=== PATIENT | male | born 1970 | race Caucasian/White ===

== ENCOUNTER 2020-11-07 13:20 | Emergency (ER) | payer MEDICARE ==
[2020-11-07] MEDS ORDERED: ACETAMINOPHEN 325 MG TABLET PO STA (13:50)
[2020-11-07] MEDS ORDERED: SODIUM CHLORIDE 0.9% 1,000 ML IV STA ×3 (13:55→14:37)
[2020-11-07 14:22] LABS: BASOPHILS % (AUTO) 0.1 %; EOSINOPHILS % (AUTO) 0.1 %; HCT - HEMATOCRIT 24.2 % (42.0-52.0); HGB - HEMOGLOBIN 7.8 g/dL (14.0-18.0); LYMPHOCYTES # (AUTO) 0.2 10^3/uL (1.5-3.5); LYMPHOCYTES % (AUTO) 1.3 %; MEAN CORPUSCULAR HGB CONC 32.2 g/dL (32.0-36.0); MEAN CORPUSCULAR VOLUME 83.7 fL (80.0-94.0); MONOCYTES # (AUTO) 0.5 10^3/uL (0.0-1.0); MONOCYTES % (AUTO) 4.1 %; NEUTROPHILS # (AUTO) 12.2 10^3/uL (1.5-6.6); NEUTROPHILS % (AUTO) 93.5 %; PLT - PLATELET COUNT 636 10^3/uL (130-450); RED BLOOD COUNT 2.89 10^6/uL (4.70-6.10); RED CELL DISTRIBUTION WIDTH 13.2 % (12.0-15.0); WHITE BLOOD COUNT 13.1 x10^3/uL (4.8-10.8)
--- NOTE | 2020-11-07 14:32 | XRAY Report ---
PROCEDURE: Chest 1 View X-Ray INDICATIONS: fever, cough, covid + TECHNIQUE: One view of the chest was acquired. COMPARISON: None FINDINGS: Surgical changes and devices: None. Lungs and pleura: No pleural effusions or pneumothorax. There is focal patchy consolidation in the l eft midlung field and focal patchy consolidation in the extreme right lung base. Mediastinum: Mediastinal contours appear normal. Heart size is normal. Bones and chest wall: No suspicious bony lesions. Overlying soft tissues appear unremarkable. IMPRESSION: Focal patchy bilateral pulmonary infiltrates. Reviewed by: Grant Ross MD on 11/07/2020 1:31 PM [facility] Approved by: Grant Ross MD on 11/07/2020 1:31 PM [facility] Station ID: [id number]
[2020-11-07 14:37] LABS: ALBUMIN/GLOBULIN RATIO 0.8 (1.0-2.2); BILIRUBIN,TOTAL 0.8 mg/dL (0.2-1.0); CREATININE 3.3 mg/dL (0.6-1.2); POTASSIUM 5.8 mmol/L (3.5-5.0); TOTAL PROTEIN 6.8 g/dL (6.7-8.2)
--- NOTE | 2020-11-07 14:42 | ED Physician Documentation ---
History of Present Illness - Stated complaint Stated Complaint: C+ SOA - Chief complaint Chief Complaint: Resp - History obtained from History obtained from: Patient - History of Present Illness Timing: Today Pain level max: 0 Pain level now: 0 - Additonal information Additional information: Patient is a 50-year-old male who presents to the emergency department stating he was diagnosed with Covid 2 weeks ago. Since that time has had increasing shortness of breath, increasing heart rates and fevers. He has a history of a renal transplant 17 years ago. Patient is followed at [facility] with Dr. Matos for this. Nothing makes it better or worse. Review of Systems Ten Systems: 10 systems reviewed and negative Constitutional: reports: Fever, Chills Ears: denies: Ear pain Nose: denies: Rhinorrhea / runny nose, Congestion Throat: denies: Sore throat Respiratory: reports: Dyspnea, Cough GI: denies: Vomiting, Diarrhea Skin: denies: Rash Musculoskeletal: denies: Neck pain, Back pain Neurologic: denies: Headache PD PAST MEDICAL HISTORY - Past Medical History Past Medical History: Yes Cardiovascular: Hypertension - Past Surgical History Past Surgical History: Yes Other past surgical history: Renal transplant - Present Medications Home Medications: Ambulatory Orders Medication Instructions Recorded Confirmed Losartan [Cozaar] 50 mg PO BID 11/07/20 11/07/20 Metoprolol Tartrate [Lopressor] 50 mg PO BID 11/07/20 11/07/20 NIFEdipine [Procardia Xl] 30 mg PO DAILY 11/07/20 11/07/20 PredniSONE [PredniSONE INTENSOL] 5 mg PO DAILY 11/07/20 11/07/20 cycloSPORINE, MODIFIED [Gengraf] 4 mg PO BID 11/07/20 11/07/20 mycophenolate mofetiL 500 mg PO BID 11/07/20 11/07/20 [Mycophenolate Mofetil] - Allergies Allergies/Adverse Reactions: Allergies Allergy/AdvReac Type Severity Reaction Status Date / Time No Known Drug Allergies Allergy Verified 11/07/20 13:50 - Living Situation Living Situation: reports: With family Living Arrangement: reports: At home PD ED PE NORMAL - Vitals Vital signs reviewed: Yes - General General: Alert and oriented X 3, No acute distress, Well developed/nourished - HEENT HEENT: PERRL, Moist mucous membranes - Neck Neck: Supple, no meningeal sign - Cardiac Cardiac: Other (Tachycardic) - Respiratory Respiratory: No respiratory distress, Other (Crackles bilaterally) - Abdomen Abdomen: Soft, Non tender, Non distended - Back Back: No CVA TTP, No spinal TTP - Derm Derm: Warm and dry - Extremities Extremities: No edema, No calf tenderness / cord - Neuro Neuro: Alert and oriented X 3 - Psych Psych: Normal mood, Normal affect Results - Vitals Vitals: Vital Signs - 24 hr 11/07/20 11/07/20 11/07/20 13:43 14:20 14:56 Temperature 38.0 C H Heart Rate 132 H 135 H 126 H Respiratory 19 18 22 Rate Blood Pressure 153/102 H 156/98 H 156/98 H O2 Saturation 92 94 91 L 11/07/20 11/07/20 11/07/20 15:00 15:30 16:00 Temperature 37.2 C Heart Rate 118 H 124 H 120 H Respiratory 24 22 20 Rate Blood Pressure 160/99 H 160/98 H 168/100 H O2 Saturation 96 94 95 11/07/20 11/07/20 11/07/20 17:00 17:30 18:00 Temperature Heart Rate 122 H 125 H 137 H Respiratory 23 21 28 H Rate Blood Pressure 157/96 H 168/114 H 175/102 H O2 Saturation 97 96 95 11/07/20 11/07/20 18:30 19:00 Temperature 37.2 C 37.2 C Heart Rate 148 H 140 H Respiratory 21 20 Rate Blood Pressure 171/103 H 170/100 H O2 Saturation 99 100 Oxygen O2 Source Room air - Labs Labs: Laboratory Tests 11/07/20 11/07/20 11/07/20 14:08 14:08 14:08 WBC 13.1 H RBC 2.89 L Hgb 7.8 L Hct 24.2 L MCV 83.7 MCH 27.0 MCHC 32.2 RDW 13.2 Plt Count 636 H MPV 10.0 Neut # (Auto) 12.2 H Lymph # (Auto) 0.2 L [place] # (Auto) 0.5 Eos # (Auto) 0.0 Baso # (Auto) 0.0 Absolute Nucleated RBC 0.00 Nucleated RBC % 0.0 Sodium 129 L Potassium 5.8 H Chloride 101 Carbon Dioxide 13 L Anion Gap 15.0 H BUN 85 H* Creatinine 3.3 H Estimated GFR (MDRD) 20 L Glucose 120 H Lactic Acid 1.2 Calcium 9.0 Total Bilirubin 0.8 AST 19 ALT 12 Alkaline Phosphatase 67 Total Protein 6.8 Albumin 3.0 L Globulin 3.8 Albumin/Globulin Ratio 0.8 L Urine Color Urine Clarity Urine pH Ur Specific [place] Urine Protein Urine Glucose (UA) Urine Ketones Urine Occult Blood Urine Nitrite Urine Bilirubin Urine Urobilinogen Ur Leukocyte Esterase Urine RBC Urine WBC Ur Squamous Epith Cells Urine Bacteria Ur Microscopic Review Urine Culture Comments Nasal Adenovirus (PCR) Nasal B. parapertussis DNA (PCR) Nasal Coronavir 229E PCR Nasal Coronavir HKU1 PCR Nasal Coronavir NL63 PCR Nasal Coronavir OC43 PCR Nasal Enterovir/Rhinovir PCR Nasal Influenza B PCR Nasal Influenza A PCR Nasal Parainfluen 1 PCR Nasal Parainfluen 2 PCR Nasal Parainfluen 3 PCR Nasal Parainfluen 4 PCR Nasal RSV (PCR) Nasal B.pertussis DNA PCR Nasal C.pneumoniae (PCR) Yuriy Human Metapneumo PCR Nasal M.pneumoniae (PCR) Nasal SARS-CoV-2 (PCR) 11/07/20 11/07/20 14:58 16:45 WBC RBC Hgb Hct MCV MCH MCHC RDW Plt Count MPV Neut # (Auto) Lymph # (Auto) [place] # (Auto) Eos # (Auto) Baso # (Auto) Absolute Nucleated RBC Nucleated RBC % Sodium Potassium Chloride Carbon Dioxide Anion Gap BUN Creatinine Estimated GFR (MDRD) Glucose Lactic Acid Calcium Total Bilirubin AST ALT Alkaline Phosphatase Total Protein Albumin Globulin Albumin/Globulin Ratio Urine Color YELLOW Urine Clarity CLEAR Urine pH 5.5 Ur Specific [place] 1.015 Urine Protein 100 H Urine Glucose (UA) NEGATIVE Urine Ketones NEGATIVE Urine Occult Blood TRACE-INTA Urine Nitrite NEGATIVE Urine Bilirubin NEGATIVE Urine Urobilinogen 0.2 (NORMAL) Ur Leukocyte Esterase NEGATIVE Urine RBC 0-5 Urine WBC 0-3 Ur Squamous Epith Cells NONE SEEN Urine Bacteria Few Ur Microscopic Review INDICATED Urine Culture Comments NOT INDICATED Nasal Adenovirus (PCR) NOT DETECTED Nasal B. parapertussis DNA (PCR) NOT DETECTED Nasal Coronavir 229E PCR NOT DETECTED Nasal Coronavir HKU1 PCR NOT DETECTED Nasal Coronavir NL63 PCR NOT DETECTED Nasal Coronavir OC43 PCR NOT DETECTED Nasal Enterovir/Rhinovir PCR NOT DETECTED Nasal Influenza B PCR NOT DETECTED Nasal Influenza A PCR NOT DETECTED Nasal Parainfluen 1 PCR NOT DETECTED Nasal Parainfluen 2 PCR NOT DETECTED Nasal Parainfluen 3 PCR NOT DETECTED Nasal Parainfluen 4 PCR NOT DETECTED Nasal RSV (PCR) NOT DETECTED Nasal B.pertussis DNA PCR NOT DETECTED Nasal C.pneumoniae (PCR) NOT DETECTED Yuriy Human Metapneumo PCR NOT DETECTED Nasal M.pneumoniae (PCR) NOT DETECTED Nasal SARS-CoV-2 (PCR) DETECTED A - Rads (name of study) cxr Radiology: Prelim report reviewed, EMP read contemporaneously, See rad report (Focal patchy bilateral pulmonary infiltrates) PD MEDICAL DECISION MAKING - ED course Complexity details: reviewed results, re-evaluated patient, considered differential, d/w patient, d/w emergency management consultant ED course: Patient is followed by Dr. Ilan Matos at [facility] for renal transplant. Concern given his rising creatinine. We will transfer him to [facility] for further care. Discussed the case with Dr. Matos as well as the hospitalist, Dr. Rothman who graciously accepts in transfer. COBRA forms completed. This document was made in part using voice recognition software. While efforts are made to proofread this document, sound alike and grammatical errors may occur. Departure - Departure Disposition: 02 Transfer Acute Care Hosp Clinical Impression: COVID-19, Renal transplant recipient, SIRS (systemic inflammatory response syndrome) Renal failure Qualifiers: Renal failure chronicity: acute on chronic Acute renal failure type: unspecified Chronic kidney disease stage: unspecified stage Qualified Code(s): N17.9 - Acute kidney failure, unspecified Condition: Stable Discharge Date/Time: 11/07/20 19:19
[2020-11-07 16:03] LABS: CORONAVIRUS 229E-RESP PCR NOT DETECTED; CORONAVIRUS HKU1-RESP PCR NOT DETECTED; CORONAVIRUS NL63-RESP PCR NOT DETECTED; CORONAVIRUS OC43-RESP PCR NOT DETECTED
[2020-11-07 16:05] LABS: HUMAN METAPNEUMOVIRUS NOT DETECTED; INFLUENZA A- RESP PCR PANEL NOT DETECTED; RHINOVIRUS/ENTEROVIRUS NOT DETECTED; SARS-CoV-2 -RESP PCR PANEL DETECTED
[2020-11-07 16:06] LABS: B. PARAPERTUSSIS- RESP PCR PAN NOT DETECTED; B. PERTUSSIS- RESP PCR PANEL NOT DETECTED; C. PNEUMONIAE- RESP PCR PANEL NOT DETECTED; INFLUENZA B - RESP PCR PANEL NOT DETECTED; M. PNEUMONIAE- RESP PCR PANEL NOT DETECTED; PARAINFLUENZA VIRUS 1 NOT DETECTED; PARAINFLUENZA VIRUS 2 NOT DETECTED; PARAINFLUENZA VIRUS 3 NOT DETECTED; PARAINFLUENZA VIRUS 4 NOT DETECTED; RSV- RESP PCR PANEL NOT DETECTED
[2020-11-07 17:00] LABS: BILIRUBIN,URINE NEGATIVE (NEGATIVE); GLUCOSE, URINE (UA) NEGATIVE (NEGATIVE); KETONES,URINE (UA) NEGATIVE (NEGATIVE); LEUKOCYTE ESTERASE, URINE NEGATIVE (NEGATIVE); NITRITE,URINE NEGATIVE (NEGATIVE); OCCULT BLOOD,URINE TRACE-INTA (NEGATIVE); PH,URINE 5.5 PH (5.0-7.5); PROTEIN,URINE 100 mg/dL (NEGATIVE); UROBILINOGEN,URINE 0.2 (NORMAL) E.U./dL (NORMAL)
[2020-11-07 17:01] LABS: CLARITY,URINE CLEAR (CLEAR)
[2020-11-07 17:13] LABS: BACTERIA,URINE Few /HPF (None Seen); RBC,URINE 0-5 /HPF (0-5); SQUAMOUS EPITHELIAL CELL,UR NONE SEEN (<= Few); WBC,URINE 0-3 /HPF (0-3)
[2020-11-07] MEDS ORDERED: ESMOLOL 100 MG/10 ML VIAL IVP STA (18:40)
[2020-11-07 19:13] VITALS: BP 170/100
== END 2020-11-07 19:19 | disposition short-term general hospital (02) ==
LOC: ED 13:20
DX: U07.1 COVID-19 (principal); R65.10 Systemic inflammatory response syndrome (SIRS) of non-infectious origin without acute organ dysfunction; Z94.0 Kidney transplant status
CPT/HCPCS: 36415; 71045; 80053; 81001; 83605; 85025; 87040; 87631; 96361; 96374; 99284; 99285; A9270; 0202U; 81003; 87086

== ENCOUNTER 2020-11-11 08:51 | Outpatient (CLI) | payer MEDICARE | END 2020-11-11 08:52 | disposition critical access hospital (66) | LOC: EMS 08:51 | DX: R06.02 Shortness of breath (principal); R53.1 Weakness; R50.9 Fever, unspecified | CPT/HCPCS: A0425; A0429 ==

== ENCOUNTER 2020-11-11 09:05 | Emergency (ER) | payer MEDICARE ==
[2020-11-11] MEDS ORDERED: ALBUTEROL NEB 2.5 MG/3 ML INH STA ×2 (09:20→11:34)
[2020-11-11] MEDS ORDERED: SODIUM CHLORIDE 0.9% 1,000 ML IV STA (09:21)
[2020-11-11] MEDS ORDERED: DEXAMETHASONE 10 MG/ML VIAL IVP STA (09:21)
--- NOTE | 2020-11-11 09:52 | XRAY Report ---
PROCEDURE: Chest 1 View X-Ray INDICATIONS: chest pain TECHNIQUE: One view of the chest was acquired. COMPARISON: Chest x-ray 11/07/2020 FINDINGS: Surgical changes and devices: None. Lungs and pleura: There has been interval increase in right basilar as well as left upper and left lo wer/retrocardiac opacities. Mediastinum: Mediastinal contours appear normal. Heart size is enlarged. Bones and chest wall: No suspicious bony lesions. Overlying soft tissues appear unremarkable. IMPRESSION: Increased appearance of bilateral pulmonary opacities most suggestive of pneumonia. Reviewed by: Reva Manzanares MD on 11/11/2020 9:51 AM PDT Approved by: Reva Manzanares MD on 11/11/2020 9:51 AM PDT Station ID: [id number]
[2020-11-11 10:03] LABS: BASOPHILS % (AUTO) 0.1 %; HCT - HEMATOCRIT 24.3 % (42.0-52.0); HGB - HEMOGLOBIN 7.7 g/dL (14.0-18.0); LYMPHOCYTES # (AUTO) 0.1 10^3/uL (1.5-3.5); LYMPHOCYTES % (AUTO) 0.7 %; MEAN CORPUSCULAR HEMOGLOBIN 27.1 pg (27.0-31.0); MEAN CORPUSCULAR HGB CONC 31.7 g/dL (32.0-36.0); MEAN CORPUSCULAR VOLUME 85.6 fL (80.0-94.0); MEAN PLATELET VOLUME 9.2 fL (7.4-11.4); MONOCYTES # (AUTO) 0.9 10^3/uL (0.0-1.0); MONOCYTES % (AUTO) 5.9 %; NEUTROPHILS # (AUTO) 14.3 10^3/uL (1.5-6.6); PLT - PLATELET COUNT 655 10^3/uL (130-450); RED BLOOD COUNT 2.84 10^6/uL (4.70-6.10); RED CELL DISTRIBUTION WIDTH 13.6 % (12.0-15.0); WHITE BLOOD COUNT 15.5 x10^3/uL (4.8-10.8)
[2020-11-11] MEDS ORDERED: cefTRIAXone 1 GM VIAL IVP STA (10:09)
[2020-11-11 10:16] LABS: ALBUMIN 2.6 g/dL (3.2-5.5); ALBUMIN/GLOBULIN RATIO 0.7 (1.0-2.2); BILIRUBIN,TOTAL 0.8 mg/dL (0.2-1.0); CALCIUM 8.3 mg/dL (8.5-10.3); CREATININE 2.8 mg/dL (0.6-1.2); POTASSIUM 4.9 mmol/L (3.5-5.0); TOTAL PROTEIN 6.2 g/dL (6.7-8.2)
[2020-11-11] MEDS ORDERED: ACETAMINOPHEN 325 MG TABLET PO STA (11:03)
[2020-11-11] MEDS ORDERED: AZITHROMYCIN INJ 500 MG in SODIUM CHLORIDE 0.9% 250 ML IV STA (11:05)
--- NOTE | 2020-11-11 12:50 | ED Physician Documentation ---
PD HPI DYSPNEA - Stated complaint Stated Complaint: SOA C+ - Chief complaint Chief Complaint: Resp - History obtained from History obtained from: Patient - History of Present Illness Timing - onset: How many weeks ago (2) Timing - onset during: Light activity Timing - duration: Weeks (2) Timing - details: Gradual onset, Still present (He has had cough and fevers and dyspnea for 2 weeks and diagnosed with Covid. He had been doing fairly well and came to the ER 4 days ago due to increased dyspnea. He also had nausea and felt dehydrated. Transferred to [facility] due to renal insuff, worse dyspnea, and is post kidney transplant.) Inciting event(s): URI (COVID infection.) Worsened by: Exertion (even slight activity with walking in room at home.), Coughing Associated symptoms: Fever, Cough, Wheezing. No: Hemoptysis, Bilateral edema Recently seen: Emergency Dept, Transferred (to [facility] and was there 2 days with hydration, improving GFR/creatinine, and adequate resp status. Was not needing supplemental oxygen.) Review of Systems Constitutional: reports: Fever, Chills, Myalgias Nose: reports: Congestion. denies: Rhinorrhea / runny nose Throat: denies: Sore throat Cardiac: denies: Chest pain / pressure Respiratory: reports: Dyspnea, Cough, Wheezing GI: reports: Nausea, Diarrhea (mild initially, not current). denies: Abdominal Pain, Vomiting Skin: denies: Rash Neurologic: reports: Generalized weakness. denies: Focal weakness, Near syncope, Altered mental status PD PAST MEDICAL HISTORY - Past Medical History Cardiovascular: Hypertension : Other (renal transplant about 15 years ago. [employer] is at [facility]. ) - Past Surgical History Past Surgical History: Yes - Present Medications Home Medications: Ambulatory Orders Medication Instructions Recorded Confirmed Losartan [Cozaar] 50 mg PO BID 11/07/20 11/11/20 Metoprolol Tartrate [Lopressor] 50 mg PO BID 11/07/20 11/11/20 NIFEdipine [Procardia Xl] 30 mg PO DAILY 11/07/20 11/11/20 PredniSONE [PredniSONE INTENSOL] 5 mg PO DAILY 11/07/20 11/11/20 cycloSPORINE, MODIFIED [Gengraf] 4 mg PO BID 11/07/20 11/11/20 mycophenolate mofetiL 500 mg PO BID 11/07/20 11/11/20 [Mycophenolate Mofetil] - Allergies Allergies/Adverse Reactions: Allergies Allergy/AdvReac Type Severity Reaction Status Date / Time No Known Drug Allergies Allergy Verified 11/11/20 09:24 - Social History Does the pt smoke?: No Smoking Status: Never smoker Does the pt drink ETOH?: No Does the pt have substance abuse?: No - Immunizations Immunizations are current?: Yes - POLST Patient has POLST: No PD ED PE NORMAL - Vitals Vital signs reviewed: Yes - General General: Alert and oriented X 3, No acute distress (able to talk in sentences. ), Well developed/nourished - HEENT HEENT: Pharynx benign - Neck Neck: Supple, no meningeal sign, No adenopathy, No JVD - Cardiac Cardiac: No murmur. No: RRR (tachycardia but regular. ) - Respiratory Respiratory: No respiratory distress. No: Clear bilaterally (coarse sounds right side, diffuse exp wheezing noted. ) - Abdomen Abdomen: Soft, Non tender - Back Back: No CVA TTP - Derm Derm: Normal color, Warm and dry - Extremities Extremities: No tenderness to palpate, Normal ROM s pain, No edema, No calf tenderness / cord - Neuro Neuro: Alert and oriented X 3, No motor deficit, Normal speech Eye Opening: Spontaneous Motor: Obeys Commands Verbal: Oriented GCS Score: 15 Results - Vitals Vitals: Vital Signs - 24 hr 11/11/20 11/11/20 11/11/20 09:07 10:00 11:02 Temperature 38.7 C H 39.1 C H Heart Rate 140 H 137 H 132 H Respiratory 20 20 20 Rate Blood Pressure 131/73 H 121/68 O2 Saturation 89 L 92 11/11/20 11/11/20 11/11/20 12:00 12:32 18:00 Temperature 36.8 C 36.1 C L Heart Rate 121 H 90 Respiratory 15 22 Rate Blood Pressure 116/81 H O2 Saturation 97 Oxygen O2 Source Nasal cannula - Labs Labs: Laboratory Tests 11/11/20 11/11/20 11/11/20 09:55 09:55 09:55 WBC 15.5 H RBC 2.84 L Hgb 7.7 L Hct 24.3 L MCV 85.6 MCH 27.1 MCHC 31.7 L RDW 13.6 Plt Count 655 H MPV 9.2 Neut # (Auto) 14.3 H Lymph # (Auto) 0.1 L [place] # (Auto) 0.9 Eos # (Auto) 0.0 Baso # (Auto) 0.0 Absolute Nucleated RBC 0.00 Nucleated RBC % 0.0 Sodium 132 L Potassium 4.9 Chloride 98 L Carbon Dioxide 21 Anion Gap 13.0 BUN 77 H Creatinine 2.8 H Estimated GFR (MDRD) 24 L Glucose 120 H Lactic Acid Calcium 8.3 L Total Bilirubin 0.8 AST 22 ALT 19 Alkaline Phosphatase 82 Troponin I High Sens 21.5 H* B-Natriuretic Peptide Total Protein 6.2 L Albumin 2.6 L Globulin 3.6 Albumin/Globulin Ratio 0.7 L Lipase 57 H Nasal Adenovirus (PCR) Nasal B. parapertussis DNA (PCR) Nasal Coronavir 229E PCR Nasal Coronavir HKU1 PCR Nasal Coronavir NL63 PCR Nasal Coronavir OC43 PCR Nasal Enterovir/Rhinovir PCR Nasal Influenza B PCR Nasal Influenza A PCR Nasal Parainfluen 1 PCR Nasal Parainfluen 2 PCR Nasal Parainfluen 3 PCR Nasal Parainfluen 4 PCR Nasal RSV (PCR) Nasal B.pertussis DNA PCR Nasal C.pneumoniae (PCR) Yuriy Human Metapneumo PCR Nasal M.pneumoniae (PCR) Nasal SARS-CoV-2 (PCR) 11/11/20 11/11/20 11/11/20 09:55 09:55 14:32 WBC RBC Hgb Hct MCV MCH MCHC RDW Plt Count MPV Neut # (Auto) Lymph # (Auto) [place] # (Auto) Eos # (Auto) Baso # (Auto) Absolute Nucleated RBC Nucleated RBC % Sodium Potassium Chloride Carbon Dioxide Anion Gap BUN Creatinine Estimated GFR (MDRD) Glucose Lactic Acid 2.1 Calcium Total Bilirubin AST ALT Alkaline Phosphatase Troponin I High Sens B-Natriuretic Peptide 195 H Total Protein Albumin Globulin Albumin/Globulin Ratio Lipase Nasal Adenovirus (PCR) NOT DETECTED Nasal B. parapertussis DNA (PCR) NOT DETECTED Nasal Coronavir 229E PCR NOT DETECTED Nasal Coronavir HKU1 PCR NOT DETECTED Nasal Coronavir NL63 PCR NOT DETECTED Nasal Coronavir OC43 PCR NOT DETECTED Nasal Enterovir/Rhinovir PCR NOT DETECTED Nasal Influenza B PCR NOT DETECTED Nasal Influenza A PCR NOT DETECTED Nasal Parainfluen 1 PCR NOT DETECTED Nasal Parainfluen 2 PCR NOT DETECTED Nasal Parainfluen 3 PCR NOT DETECTED Nasal Parainfluen 4 PCR NOT DETECTED Nasal RSV (PCR) NOT DETECTED Nasal B.pertussis DNA PCR NOT DETECTED Nasal C.pneumoniae (PCR) NOT DETECTED Yuriy Human Metapneumo PCR NOT DETECTED Nasal M.pneumoniae (PCR) NOT DETECTED Nasal SARS-CoV-2 (PCR) DETECTED A - Rads (name of study) No standard instances Radiology: Prelim report reviewed (patchy infiltrates c/w pneumonia), See rad report PD MEDICAL DECISION MAKING - ED course Complexity details: reviewed results (CXR with patchy infiltrate that could suggest secondary pneumonia. ), re-evaluated patient (still without resp distre ss, 90-91% sats on NC.), considered differential (recent COVID Dx 4 days ago with renal transplant, renal insufficiency, needing supplemental oxygen. I think he needs higher level of care. ), d/w patient ED course: Prolonged duration in the ER due to awaiting bed availability at [facility]. Other facilities were without beds to and he had recently been there and his frame bender is there so waiting for bed availability seemed reasonable. They had anticipated a few hours and it became a little bit longer than that. He remained stable here in the ER will be transferred soon by ground ambulance. Departure - Departure Disposition: 02 Transfer Acute Care Hosp Clinical Impression: COVID-19, Renal failure, Renal transplant recipient, Pneumonia, Hypoxia Condition: Stable
[2020-11-11 15:41] LABS: CORONAVIRUS 229E-RESP PCR NOT DETECTED; CORONAVIRUS HKU1-RESP PCR NOT DETECTED; CORONAVIRUS NL63-RESP PCR NOT DETECTED; CORONAVIRUS OC43-RESP PCR NOT DETECTED
[2020-11-11 15:45] LABS: B. PARAPERTUSSIS- RESP PCR PAN NOT DETECTED; B. PERTUSSIS- RESP PCR PANEL NOT DETECTED; C. PNEUMONIAE- RESP PCR PANEL NOT DETECTED; HUMAN METAPNEUMOVIRUS NOT DETECTED; INFLUENZA A- RESP PCR PANEL NOT DETECTED; INFLUENZA B - RESP PCR PANEL NOT DETECTED; M. PNEUMONIAE- RESP PCR PANEL NOT DETECTED; PARAINFLUENZA VIRUS 1 NOT DETECTED; PARAINFLUENZA VIRUS 2 NOT DETECTED; PARAINFLUENZA VIRUS 3 NOT DETECTED; PARAINFLUENZA VIRUS 4 NOT DETECTED; RHINOVIRUS/ENTEROVIRUS NOT DETECTED; RSV- RESP PCR PANEL NOT DETECTED; SARS-CoV-2 -RESP PCR PANEL DETECTED
[2020-11-11 18:35] VITALS: BP 116/81
== END 2020-11-11 19:00 | disposition short-term general hospital (02) ==
LOC: EDUNIT# → ED 09:05
DX: U07.1 COVID-19 (principal); J12.82 Pneumonia due to coronavirus disease 2019; R09.02 Hypoxemia; N19 Unspecified kidney failure; Z94.0 Kidney transplant status; I10 Essential (primary) hypertension; R00.0 Tachycardia, unspecified
CPT/HCPCS: 36415; 71045; 80053; 83605; 83690; 83880; 84484; 85025; 87631; 93005; 94640; 96365; 96375; 99284; 99285; A9270; 0202U

== ENCOUNTER 2020-11-11 19:02 | Outpatient (CLI) | payer MEDICARE | END 2020-11-11 19:03 | disposition short-term general hospital (02) | LOC: EMS 19:02 | PROVIDERS: ATTEND Emergency Medicine | DX: U07.1 COVID-19 (principal); J12.82 Pneumonia due to coronavirus disease 2019; R09.02 Hypoxemia; N28.9 Disorder of kidney and ureter, unspecified | CPT/HCPCS: A0425; A0428 ==

== ENCOUNTER 2020-12-08 11:23 | Outpatient (CLI) | payer MEDICARE ==
[2020-12-08 11:36] LABS: BASOPHILS # (AUTO) 0.1 10^3/uL (0.0-0.1); BASOPHILS % (AUTO) 0.7 %; EOSINOPHILS # (AUTO) 0.5 10^3/uL (0.0-0.7); EOSINOPHILS % (AUTO) 6.8 %; HCT - HEMATOCRIT 29.4 % (42.0-52.0); HGB - HEMOGLOBIN 8.8 g/dL (14.0-18.0); LYMPHOCYTES # (AUTO) 0.9 10^3/uL (1.5-3.5); LYMPHOCYTES % (AUTO) 12.5 %; MEAN CORPUSCULAR HEMOGLOBIN 27.2 pg (27.0-31.0); MEAN CORPUSCULAR HGB CONC 29.9 g/dL (32.0-36.0); MEAN CORPUSCULAR VOLUME 90.7 fL (80.0-94.0); MEAN PLATELET VOLUME 9.9 fL (7.4-11.4); MONOCYTES # (AUTO) 0.5 10^3/uL (0.0-1.0); MONOCYTES % (AUTO) 7.7 %; NEUTROPHILS % (AUTO) 71.7 %; PLT - PLATELET COUNT 335 10^3/uL (130-450); RED BLOOD COUNT 3.24 10^6/uL (4.70-6.10); RED CELL DISTRIBUTION WIDTH 15.5 % (12.0-15.0)
[2020-12-08 12:01] LABS: CALCIUM 8.5 mg/dL (8.5-10.3); CREATININE 2.1 mg/dL (0.6-1.2); POTASSIUM 3.7 mmol/L (3.5-5.0)
== END 2020-12-08 11:24 | disposition home or self-care (01) ==
LOC: LAB.R 11:23
PROVIDERS: ATTEND Internal Medicine Nephrology
DX: I10 Essential (primary) hypertension (principal); D63.1 Anemia in chronic kidney disease
CPT/HCPCS: 80048; 85025

== ENCOUNTER 2020-12-22 07:00 | Outpatient (CLI) | payer MEDICARE ==
[2020-12-22 16:05] LABS: BASOPHILS % (AUTO) 0.5 %; EOSINOPHILS # (AUTO) 0.1 10^3/uL (0.0-0.7); EOSINOPHILS % (AUTO) 1.1 %; HCT - HEMATOCRIT 30.7 % (42.0-52.0); HGB - HEMOGLOBIN 9.3 g/dL (14.0-18.0); LYMPHOCYTES # (AUTO) 0.5 10^3/uL (1.5-3.5); LYMPHOCYTES % (AUTO) 6.8 %; MEAN CORPUSCULAR HEMOGLOBIN 27.3 pg (27.0-31.0); MEAN CORPUSCULAR HGB CONC 30.3 g/dL (32.0-36.0); MEAN PLATELET VOLUME 9.7 fL (7.4-11.4); MONOCYTES # (AUTO) 0.8 10^3/uL (0.0-1.0); MONOCYTES % (AUTO) 9.6 %; NEUTROPHILS # (AUTO) 6.4 10^3/uL (1.5-6.6); NEUTROPHILS % (AUTO) 81.1 %; PLT - PLATELET COUNT 445 10^3/uL (130-450); RED BLOOD COUNT 3.41 10^6/uL (4.70-6.10); RED CELL DISTRIBUTION WIDTH 14.6 % (12.0-15.0); WHITE BLOOD COUNT 7.9 x10^3/uL (4.8-10.8)
[2020-12-22 16:11] LABS: CALCIUM 8.7 mg/dL (8.5-10.3); CREATININE 1.8 mg/dL (0.6-1.2); POTASSIUM 4.4 mmol/L (3.5-5.0)
== END 2020-12-22 23:59 | disposition home or self-care (01) ==
LOC: LAB.R 07:00
PROVIDERS: ATTEND Internal Medicine Nephrology
DX: J96.01 Acute respiratory failure with hypoxia (principal); N17.9 Acute kidney failure, unspecified
CPT/HCPCS: 80048; 85025